=== PATIENT | female | born 1975 | race African-American/Black ===

== ENCOUNTER → 2018-11-13 | Outpatient (CLI) | payer OTHER ==
--- NOTE | 2018-11-13 11:51 | 2DMMODE ---
[facility] [address] [place] [address] 2 D/M-MODE ECHOCARDIOGRAM Name: SPARKLE NANCE Room #: REG [facility]#: [id number] ������������� Admission: 11/13/18 ������������� Attend Phys: Irwin Vera Discharge: ��� ������������� ��� Date of : 77 Date of Service: 11/13/18 1151 �� Report #: [id number] �������� ��������������������������������������������[id number] THIS REPORT FOR: //name// APPROVED REPORT Study performed: 11/13/2018 11:05:16 EXAM: Comprehensive 2D, Doppler, and color-flow Echocardiogram Patient Location: Echo lab Room #: Outpatient Status: routine BSA: 1.70 HR: 76 bpm BP: 144/102 mmHg Rhythm: NSR Other Information Study Quality: Good Risk Factors: Cardiac Risk Factors: HTN Indications Syncope 2D Dimensions IVSd: 11.07 (7-11mm) LVOT Diam: 19.00 (18-24mm) LVDd: 39.38 mm PWd: 10.72 (7-11mm) Ascending Ao: 25.40 (22-36mm) LVDs: 28.78 (25-40mm) Aortic Root: 27.19 mm LV Single Plane 4CH: 60.21 % LV Single Plane 2CH: 55.56 % Biplane EF: 58.1 % Volumes Left Atrial Volume (Systole) Single Plane 4CH: 31.83 mL Single Plane 2CH: 45.16 mL LA ESV Index: 27.00 mL/m2 Mitral Valve E/A Ratio: 1.3 MV Decel. Time: 147.95 ms MV E Max Jakub.: 0.93 m/s MV A Jakub.: 0.71 m/s [facility] [address] [place] [address] 2 D/M-MODE ECHOCARDIOGRAM Name: SPARKLE NANCE Room #: [facility]#: [id number] ������������� Admission: 11/13/18 ������������� Attend Phys: [facility]win [facility] Discharge: ��� ������������� ��� Date of : 77 Date of Service: 11/13/18 1151 �� Report #: [id number] �������� ��������������������������������������������[id number] MV PHT: 42.91 ms IVRT: 58.82 ms TDI E/Lateral E': 8.45 E/Medial E': 10.33 Medial E' Jakub.: 0.09 m/s Lateral E' Jakub.: 0.11 m/s Pulmonary Valve PV Peak Jakub.: 1.25 m/s PV Peak Gr.: 6.25 mmHg Pulmonary Vein P Vein S: 0.55 m/s P Vein A: 0.35 m/s P Vein D: 0.61 m/s P Vein A Dur.: 110.7 msec P Vein S/D Ratio: 0.90 Tricuspid Valve RAP Estimate: 7.00 mmHg Left Ventricle The left ventricle is normal size. There is normal LV segmental wall motion. Borderline concentric left ventricular hypertrophy. The left ventricular systolic function is normal. The left ventricular ejection fraction is within the normal range. LVEF is 55-60%. The left ventricular diastolic function is normal. Right Ventricle The right ventricle is normal size. The right ventricular systolic function is normal. Atria The left atrium size is normal. The right atrium size is normal. Aortic Valve The aortic valve is normal in structure. No aortic regurgitation is present. There is no aortic valvular stenosis. Mitral Valve The mitral valve is normal in structure. Trace mitral regurgitation. No evidence of mitral valve stenosis. Tricuspid Valve The tricuspid valve is normal in structure. Trace tricuspid regurgitation. Unable to assess PA pressure. [facility] [address] [place] [address] 2 D/M-MODE ECHOCARDIOGRAM Name: GOYOSHAJOSE J Sanchez Room #: REG [place]#: [id number] ������������� Admission: 11/13/18 ������������� Attend Phys: Irwin Vera Discharge: ��� ������������� ��� Date of : 77 Date of Service: 11/13/18 1151 �� Report #: [id number] �������� ��������������������������������������������[id number] Pulmonic Valve The pulmonary valve is normal in structure. There is no pulmonic valvular regurgitation. Great Vessels The aortic root is normal in size. IVC is normal in size and collapses >50% with inspiration. Pericardium There is no pericardial effusion. <Conclusion> The left ventricle is normal size. LVEF is 55-60%. The aortic valve is normal in structure. The mitral valve is normal in structure. Trace mitral regurgitation. The tricuspid valve is normal in structure. Trace tricuspid regurgitation. Unable to assess PA pressure. The pulmonary valve is normal in structure. There is no pericardial effusion. ��������������������������������������������� <ELECTRONICALLY SIGNED> ���������������������������������������� By: Alvin Vasquez MD ��������������������������������������������� 11/13/18 1151 1151 1151 Alvin Vasquez MD /INF
== END ==
LOC: CV 10:18
DX: R55 Syncope and collapse (principal)

== ENCOUNTER 2019-10-05 19:43 | Emergency (ER) | payer OTHER ==
[~2019-10-05] VITALS: Ht 165.1 cm; Wt 68.0 kg
--- NOTE | ~2019-10-05 | EKG ---
[facility] [address] [place] [address] ELECTROCARDIOGRAM REPORT Name: SPARKLE NANCE Room #: REG [facility]#: [id number] Admission: 10/05/19 Attend Phys: Discharge: Date of : 77 Report #: [id number] THIS REPORT FOR: cc: Arianne Jean Baptiste MD, Melanie MD Epiphany, Epiphany MD ~ THIS REPORT FOR: //name// [facility] ED Test Date: 2019-10-05 Test Time: 19:50:28 Pat Name: SPARKLE NANCE Department: Room: Gender: F Vehicle Care Specialist: WES : 1975 Requested By: Monse Ling Order Number: [id number] MD: Measurements Intervals Rossiter Rate: 92 P: 71 CT: 212 QRS: 58 QRSD: 83 T: 30 QT: 358 QTc: 443 Interpretive Statements Sinus rhythm Prolonged CT interval Probable left atrial enlargement No previous ECG available for comparison [email or web address] By: 49 Reyes Daniels MD /EPI
[2019-10-05] MEDS ORDERED: ALPRAZOLAM 0.50.5 M1 PO (20:21)
[2019-10-05 21:19] LABS: HEMATOCRIT 38.2 % (37.0-47.0); HEMOGLOBIN 12.9 gm/dL (12.0-15.0); MCH 32.4 pg (26.0-34.0); MCHC 33.7 g/dL (28.0-37.0); MCV 96.2 fL (80.0-100.0); PLATELET COUNT 226 thou/uL (150-400); RBC 3.97 mil/uL (4.20-5.00); RDW 13.2 % (10.5-14.5); WBC 7.1 thou/uL (4.0-11.0)
[2019-10-05 21:22] LABS: ANION GAP 9 mmol/L (7-16); BUN 11 mg/dL (7-18); CALCIUM 8.6 mg/dL (8.5-10.1); CHLORIDE 102 mmol/L (98-107); CO2 26 mmol/L (21-32); CREATININE 0.9 mg/dL (0.6-1.0); GLUCOSE 94 mg/dL (74-106); POTASSIUM 3.7 mmol/L (3.5-5.1); SODIUM 137 mmol/L (136-145)
[2019-10-05 21:36] LABS: ALBUMIN 3.9 g/dL (3.4-5.0); DIRECT BILIRUBIN < 0.1 mg/dL (<0.1-0.2); LIPASE 170 U/L (73-393); SGOT 21 U/L (15-37); SGPT 18 U/L (30-65); TOTAL BILIRUBIN 0.5 mg/dL (<0.1-1.0); TOTAL PROTEIN 7.4 g/dL (6.4-8.2); TROPONIN-I <0.06 ng/mL (<0.06)
[2019-10-05 22:10] LABS: ABSOLUTE NEUTROPHILS 2.6 thou/uL (1.4-8.2)
[2019-10-05] MEDS ORDERED: NORCO 5-325 TA1 EAC1 PO (23:31)
[2019-10-05 23:33] VITALS: BP 143/66
== END 2019-10-05 23:30 | disposition home or self-care (01) ==
LOC: ER 19:43
PROVIDERS: Emergency Medicine
DX: R07.9 Chest pain, unspecified (principal); K59.00 Constipation, unspecified; R42 Dizziness and giddiness; R06.02 Shortness of breath; R11.0 Nausea; Z79.899 Other long term (current) drug therapy